=== PATIENT | male | born 1995 | race African-American/Black ===

== ENCOUNTER 2024-07-10 19:44 | Emergency (ER) | payer OTHER ==
[~2024-07-10] VITALS: Ht 188 cm; Wt 122.7 kg
[2024-07-10 19:52] VITALS: TEMP 98.9
[2024-07-10] MEDS ORDERED: NS 1,000 ML IV ONE ×2 (20:30→22:00)
[2024-07-10 20:32] LABS: BASO % 0.6 % (0.0-2.0); EOS # 0.1 K/mm3 (0.0-0.7); EOS % 2.1 % (0.0-4.0); GRAN # 2.4 K/mm3 (1.4-6.5); GRAN % 46.7 % (42.2-75.2); HEMATOCRIT 42.2 % (42.0-52.0); HEMOGLOBIN 14.3 g/dl (13.5-18.0); LYMPH # 2.3 K/mm3 (1.2-3.4); LYMPH % 43.7 % (20.0-51.0); MEAN CELL VOLUME 98 fl (80.0-100.0); MEAN CORPUSCULAR HEMOGLOBIN 33 pg (27-31); MEAN CORPUSCULAR HGB CONC 34 g/dl (33.0-37.0); MEAN PLATELET VOLUME 10.5 fl (7.4-10.4); MONO # 0.4 K/mm3 (0.1-0.6); MONO % 6.7 % (1.7-9.3); PLATELET COUNT 219 K/mm3 (130-400); RED BLOOD COUNT 4.29 M/mm3 (4.20-5.60); REDCELL DISTRIBUTION WIDTH-CV 11.8 % (11.5-14.5)
[2024-07-10 20:54] LABS: ALANINE AMINOTRANSFERASE 21 U/L (0-55); ALBUMIN 4.3 g/dL (3.5-5.0); ALKALINE PHOSPHATASE 62 U/L (40-150); ANION GAP 15 mmol/L (7-16); AST,SGOT 30 U/L (5-34); BILIRUBIN,TOTAL 1.8 mg/dL (0.2-1.2); BLOOD UREA NITROGEN 22 mg/dL (9-21); CALCIUM 9.3 mg/dL (8.4-10.2); CHLORIDE 103 mEq/L (98-107); CREATINE KINASE 407 U/L (30-200); CREATININE, serum 1.29 mg/dL (0.72-1.25); GLUCOSE 111 mg/dL (70-99); POTASSIUM 3.5 mEq/L (3.5-4.5); SODIUM 137 mEq/L (136-145); TOTAL PROTEIN 7.9 g/dl (6.2-8.1)
[2024-07-10 21:01] LABS: TROPONIN-I < 0.010 ng/mL (0.00-0.033)
[2024-07-10 22:35] LABS: PH 5.5 (5.0-8.5); URINE APPEARANCE CLEAR (CLEAR/HAZY); URINE BLOOD NEGATIVE (NEGATIVE); URINE COLOR YELLOW (YELLOW); URINE GLUCOSE NEGATIVE (NEGATIVE); URINE KETONE 1+ (NEGATIVE); URINE NITRATE NEGATIVE (NEGATIVE); URINE PROTEIN(semi-quant) NEGATIVE (NEGATIVE); URINE UROBILINOGEN 0.2 E.U/dL (0.2-1.0)
[2024-07-10 22:57] LABS: COLLECTION METHOD CLEAN CATCH
[2024-07-10 23:02] LABS: TRICYCLIC ANTIDEPRESS URINE NEGATIVE (NEGATIVE)
[2024-07-10 23:44] VITALS: BP 120/60; PULSE 73
== END 2024-07-10 23:44 | disposition home or self-care (01) ==
LOC: COL.ER 19:44
PROVIDERS: Nurse Practitioner
DX: R00.2 Palpitations (principal); X32.XXXA Exposure to sunlight, initial encounter; Y93.89 Activity, other specified
CPT/HCPCS: J7030